=== PATIENT | male | born 1955 | race Caucasian/White ===

== ENCOUNTER 2024-08-13 21:09 | Emergency (ER) | payer MEDICARE, SELFPAY ==
[2024-08-13 21:47] VITALS: BP 184/74; PULSE 91; RESP 20; TEMP 36.1; O2SAT 97
--- NOTE | 2024-08-13 22:31 | ED.GENADULT ---
HPI - General Adult General Chief complaint: Urogenital-Male Stated complaint: urinary retention Time Seen by Provider: 08/13/24 21:54 History of Present Illness HPI narrative: Patient 68-year-old gentleman who presents emergency department with chief complaint of Hooks catheter fell out. Patient reports that he had some difficulty urinating after the Hooks came out and decided to come the emergency department. Patient reports he is feeling much better after his Hooks has been replaced Related Data Allergies Allergy/AdvReac Type Severity Reaction Status Date / Time No Known Allergies Allergy Verified 08/13/24 21:11 Review of Systems Review of Systems: A 10 system review of systems was completed on the patient and is negative except for what is stated in the HPI. Nursing and ancillary documentation was reviewed. Exam Narrative: GENERAL: Well-appearing, well-nourished, and in no acute distress. HEAD: Normocephalic, atraumatic. EYES: PERRLA and EOMI. ENT: Nares clear, no rhinorrhea or epistaxis. Mucous membranes moist. NECK: Supple. CHEST: Clear to auscultation. No respiratory distress. HEART: Regular rate and rhythm. No murmur heard. Normal peripheral pulses. ABDOMEN: Soft, nontender, nondistended, normal active bowel sounds. : Hooks catheter in place EXTREMITIES: Normal range of motion. No edema. SKIN: Warm, dry, no rash. NEURO: No focal deficits. Alert and oriented x3. PSYCH: Normal mood and affect. Course Vital Signs Vital signs: Vital Signs Temperature 36.1 C L 08/13/24 21:47 Pulse Rate 91 08/13/24 21:47 Respiratory Rate 20 08/13/24 21:47 Blood Pressure 184/74 H 08/13/24 21:47 Pulse Oximetry 97 08/13/24 21:47 Oxygen Delivery Room Air 08/13/24 21:47 Temperature 36.1 C L 08/13/24 21:47 Pulse Rate 91 08/13/24 21:47 Respiratory Rate 20 08/13/24 21:47 Blood Pressure 184/74 H 08/13/24 21:47 Pulse Oximetry 97 08/13/24 21:47 Oxygen Delivery Room Air 08/13/24 21:47 Medical Decision Making MDM Narrative Medical decision making narrative: Differential diagnosis includes Hooks malfunction. Hooks catheter is replaced by nursing staff patient is having good Hooks output no evidence of hematuria and without complications Vital Signs Vital Signs: Vital Signs Temperature 36.1 C L 08/13/24 21:47 Pulse Rate 91 08/13/24 21:47 Respiratory Rate 20 08/13/24 21:47 Blood Pressure 184/74 H 08/13/24 21:47 Pulse Oximetry 97 08/13/24 21:47 Oxygen Delivery Room Air 08/13/24 21:47 Temperature 36.1 C L 08/13/24 21:47 Pulse Rate 91 08/13/24 21:47 Respiratory Rate 20 08/13/24 21:47 Blood Pressure 184/74 H 08/13/24 21:47 Pulse Oximetry 97 08/13/24 21:47 Oxygen Delivery Room Air 08/13/24 21:47 Discharge Plan Discharge Clinical Impression: Malfunction of Hooks catheter Patient Disposition: Home, Self-Care Condition: Stable Instructions: Antibiotic Form, Hooks Catheter Placement and Care (ED) Additional Instructions: Please follow-up with your urologist Follow-up/Referrals: PHYSICIAN NOT ON STAFF,NONSTAFF [Non-Staff] - Time of Disposition: 22:33
== END 2024-08-13 22:37 | disposition home or self-care (01) ==
PROVIDERS: Emergency Provider Emergency Medicine
DX: T83.091A Other mechanical complication of indwelling urethral catheter, initial encounter (principal); Y84.6 Urinary catheterization as the cause of abnormal reaction of the patient, or of later complication, without mention of misadventure at the time of the procedure
CPT/HCPCS: 51702; 99283

== ENCOUNTER 2024-08-18 21:04 | Emergency (ER) | payer MEDICARE, SELFPAY ==
[2024-08-18 21:44] VITALS: BP 145/71; PULSE 84; RESP 18; TEMP 36.7; O2SAT 97
[2024-08-18] MEDS: NACL 0.9% IRRIGATION POUR BOTTLE 500 ML (23:19)
--- NOTE | 2024-08-18 23:35 | ED_ITS ---
HPI - General Adult General Chief complaint: Urogenital-Male Stated complaint: petersen catheter that is blocked Time Seen by Provider: 08/18/24 23:12 History of Present Illness HPI narrative: 68-year-old male presents to the emergency department for evaluation for urinary retention. Patient did have a prostate procedure approximately 2 weeks ago. Patient had a blockage of his Petersen catheter tonight. Urology stated if we take the Petersen out and he was able to drain his bladder that he did not need the Petersen catheter replaced. Related Data Home Medications Medication Instructions Recorded Confirmed No Home Medications 08/18/24 08/18/24 Allergies Allergy/AdvReac Type Severity Reaction Status Date / Time latex Allergy Mild Hives Verified 08/18/24 21:46 adhesive tape Allergy Hives Verified 08/18/24 21:46 Review of Systems Review of Systems: All systems reviewed & are unremarkable except as noted in HPI and below Course Vital Signs Vital signs: Vital Signs Temperature 98.0 F 08/18/24 21:44 Pulse Rate 84 08/18/24 21:44 Respiratory Rate 18 08/18/24 21:44 Blood Pressure 145/71 H 08/18/24 21:44 Pulse Oximetry 97 08/18/24 21:44 Temperature 98.0 F 08/18/24 21:44 Pulse Rate 61 08/18/24 23:53 Respiratory Rate 19 08/18/24 23:53 Blood Pressure 140/83 08/18/24 23:53 Pulse Oximetry 98 08/18/24 23:53 Medical Decision Making [facility] Narrative Medical decision making narrative: 68-year-old male presenting to the emergency department for evaluation for urinary retention. Patient does have an indwelling Petersen catheter that was obstructed. Patient did have a small clot within the Petersen catheter. Petersen catheter was removed and patient was attempting to void without Petersen catheter but patient still had greater than 260 mL of retained urine. Petersen catheter was replaced. Patient does have follow-up with Urology Saturday. Differential Diagnosis Differential Diagnosis: Hematuria, UTI, BPH, Petersen catheter issues Vital Signs Vital Signs: Vital Signs Temperature 98.0 F 08/18/24 21:44 Pulse Rate 84 08/18/24 21:44 Respiratory Rate 18 08/18/24 21:44 Blood Pressure 145/71 H 08/18/24 21:44 Pulse Oximetry 97 08/18/24 21:44 Temperature 98.0 F 08/18/24 21:44 Pulse Rate 61 08/18/24 23:53 Respiratory Rate 19 08/18/24 23:53 Blood Pressure 140/83 08/18/24 23:53 Pulse Oximetry 98 08/18/24 23:53 Discharge Plan Discharge Clinical Impression: Acute urinary retention, Complication of Petersen catheter Patient Disposition: Home, Self-Care Condition: Stable Instructions: Antibiotic Form, Petersen Catheter Placement and Care (ED) Additional Instructions: Petersen catheter care as directed. Continue to have close follow-up with Urology as scheduled. If you have any worsening symptoms then please call or return to the emergency department. Prescriptions: No Action No Home Medications Follow-up/Referrals: UNKNOWN,DOCTOR [Non-Staff] -
[2024-08-18 23:53] VITALS: BP 140/83; PULSE 61; RESP 19; O2SAT 98
== END 2024-08-19 01:27 | disposition home or self-care (01) ==
PROVIDERS: Emergency Provider Emergency Medicine
DX: T83.098A Other mechanical complication of other urinary catheter, initial encounter (principal); R33.8 Other retention of urine; Y73.1 Therapeutic (nonsurgical) and rehabilitative gastroenterology and urology devices associated with adverse incidents
CPT/HCPCS: 51700; 99283